=== PATIENT | male | born 1995 | race African-American/Black ===

== ENCOUNTER 2018-08-14 15:03 | Inpatient (IN) | payer BC ==
[~2018-08-14] VITALS: Ht 185.4 cm; Wt 74.4 kg
--- NOTE | 2018-08-14 15:33 | NUR ---
PT BROUGHT IN WITH PARENT BY [facility] FOR SI PT SEEN AT [facility] PT ALERT SPEAKING COARSLY TO PARENT.
[2018-08-14 15:52] LABS: BASOPHILS # (AUTO) 0.1 /CMM (0.0-0.2); BASOPHILS % (AUTO) 0.5 % (0.0-2.0); EOSINOPHILS % (AUTO) 0.1 % (0.0-6.0); HEMATOCRIT 35 % (39-51); HEMOGLOBIN 12.2 g/dL (13.5-17.5); LYMPHOCYTES % (AUTO) 13.5 % (20.0-44.0); MEAN CORPUSCULAR HGB CONC 35 g/dl (31.0-36.0); MEAN CORPUSCULAR VOLUME 94 fL (80-96); MONOCYTES # (AUTO) 1.2 /CMM (0.1-1.30); MONOCYTES % (AUTO) 8.2 % (2.0-12.0); NEUTROPHILS # (AUTO) 11.2 /CMM (1.8-8.9); NEUTROPHILS % (AUTO) 77.7 % (43.0-81.0); PLATELET COUNT (AUTO) 203 /CMM (150-450); RED BLOOD CELL COUNT(AUTO) 3.75 MIL/uL (4.5-6.0); WHITE BLOOD COUNT (AUTO) 14.4 K/uL (4.3-11.0)
[2018-08-14 15:59] LABS: CALCIUM, SERUM 9.2 mg/dL (8.5-10.1); CARBON DIOXIDE 33 mmol/L (21-32); CHLORIDE 103 mmol/L (98-107); CREATININE 1.1 mg/dL (0.6-1.3); GLUCOSE 92 mg/dL (74-106); POTASSIUM 3.6 mmol/L (3.5-5.1); SODIUM SERUM 139 mmol/L (136-145); UREA NITROGEN, BLOOD 17 mg/dL (7-18)
[2018-08-14] MEDS ORDERED: HYDROCODONE/APAP 10/325MG 1 EA TABLET PO ONE (16:00)
[2018-08-14 16:04] LABS: ALANINE AMINOTRANSFERASE 20 U/L (12-78); ALCOHOL, BLOOD < 3 mg/dL (0-0); ALKALINE PHOSPHATASE 66 U/L (46-116); ASPARTATE AMINOTRANSFERASE 55 U/L (15-37); BILIRUBIN,DIRECT 0.1 mg/dL (0.0-0.2); BILIRUBIN,TOTAL 0.7 mg/dL (0.2-1.0); TOTAL PROTEIN, SERUM 7.2 g/dL (6.4-8.2)
[2018-08-14 16:05] LABS: ACETAMINOPHEN < 2 ug/ml (10-30); SALICYLATE < 2.8 mg/dL (2.8-20.0)
[2018-08-14] MEDS ORDERED: HYDROCODONE/APAP 10/325MG 1 EA TABLET ONE (16:22)
--- NOTE | 2018-08-14 17:51 | NUR ---
FAMILY AT BEDSIDE PENDING ADMISSION PT REFUSED PIV MD ROMERO AWARE
--- NOTE | 2018-08-14 20:59 | NUR ---
REPORT GIVEN TO NINI SANDHU FOR RAOUL
[2018-08-14] MEDS ORDERED: MAGNESIUM HYDROXIDE 30 ML UDC PO PRN (21:00)
[2018-08-14] MEDS ORDERED: HYDROCODONE/APAP 5/325MG 1 EACH TABLET PO PRN (21:00)
[2018-08-14] MEDS ORDERED: HYDROCODONE/APAP 10/325MG 1 EA TABLET PO PRN (21:00)
[2018-08-14] MEDS ORDERED: Z GUARD REMEDY 2 OZ OINT TP PRN (21:00)
[2018-08-14] MEDS ORDERED: MAG HYDROX/AL HYDROX/SIMETH 30 ML UDC PO PRN (21:00)
[2018-08-14] MEDS ORDERED: ACETAMINOPHEN 325 MG TABLET PO PRN (21:00)
[2018-08-14] MEDS ORDERED: ONDANSETRON HCL/PF 4 MG/2 ML VIAL IVP PRN (21:00)
--- NOTE | 2018-08-14 22:00 | NUR ---
RECIEVED FROM THE ER ALERT AND TALKING "GLAD TO BE HERE" REFUSED IV FLUIDS AND SALINE LOCK, STATED HE WILL DRINK FLUIDS W/O PROBLEMS. FRIENDS AND FAMILY AT THE BEDSIDE. HOSPITAL PROVIDED SITTER AT THE BEDSIDE D/T SUICIDAL IDEALAZITION. HE IS MENTIONING NOTHING SUCH TO ME AT THIS TIME. WILL NOT PUT ON A HOSPITAL GOWN WANTS TO WEAR HIS JEANS AND T SHIRT. HE IS REFUSING THE IV D/T "I WAS STUCK SO MUCH ALREADY. DID LET HIM KNOW WE EMIGHT HAVE TO IF THE MD ORDERS SOMETHING LIKE MEDS IV.
[2018-08-15 00:30] VITALS: BP 137/79
[2018-08-15 00:55] VITALS: BP 139/79
[2018-08-15] MEDS: IV NS 0.9% 1,000 ML IV PRN ×2 (00:55→06:37)
[2018-08-15 04:00] VITALS: BP 128/71
--- NOTE | 2018-08-15 05:42 | NUR ---
ENDING NOTES: ARRIVED ON THE FLOOR 2300 LAST NIGHT AT THIS TIME HE REFUSED OFFER TO HAVE AN IV INSERTED. WILL OFFER AGAIN LATER. COOPERATIVE ABOUT DRINKING JUICE AND WATER. MOTHER HERE NOW 5:30 AM AND SPOKE TO HER ABOUT THE IV SITUATION SHE SAID SHE WOULD TRY TO TALK TO HIM AND LET ME KNOW. 3 ABD SITES CDI. ON THE TELE MONITOR SR 80 -90S . SLEPT WELL NEVER ASKED FOR PAIN MEDS AFTER LEAVING THE ER.
--- NOTE | 2018-08-15 06:40 | NUR ---
PATIENTS MOM HERE STARTED IV FLUIDS ON HIM RIGHT F*/A GA22
[2018-08-15 07:22] LABS: BASOPHILS % (AUTO) 0.2 % (0.0-2.0); EOSINOPHILS % (AUTO) 1.2 % (0.0-6.0); HEMATOCRIT 37 % (39-51); HEMOGLOBIN 12.7 g/dL (13.5-17.5); LYMPHOCYTES # (AUTO) 2.3 /CMM (0.8-4.8); LYMPHOCYTES % (AUTO) 24.2 % (20.0-44.0); MEAN CORPUSCULAR HGB CONC 35 g/dl (31.0-36.0); MEAN CORPUSCULAR VOLUME 94 fL (80-96); MONOCYTES # (AUTO) 0.7 /CMM (0.1-1.30); MONOCYTES % (AUTO) 7.6 % (2.0-12.0); NEUTROPHILS # (AUTO) 6.4 /CMM (1.8-8.9); NEUTROPHILS % (AUTO) 66.8 % (43.0-81.0); PLATELET COUNT (AUTO) 184 /CMM (150-450); RED BLOOD CELL COUNT(AUTO) 3.91 MIL/uL (4.5-6.0); WHITE BLOOD COUNT (AUTO) 9.5 K/uL (4.3-11.0)
[2018-08-15 07:29] LABS: CALCIUM, SERUM 9.2 mg/dL (8.5-10.1); CREATININE 1.1 mg/dL (0.6-1.3); MAGNESIUM 1.9 mg/dL (1.8-2.4)
[2018-08-15] MEDS: PANTOPRAZOLE 40 MG TABLET.DR PO SCH (07:47)
[2018-08-15 08:00] VITALS: BP 126/80
--- NOTE | 2018-08-15 08:00 | NUR ---
RN NOTES PATIENT RECEIVED IN THE BED A/O X4, QUIET COOPERATIVE, PATIENT HAS A SMALL BLOODY SPUTUM WITH FORCEFUL COUGHING. ENCOURAGED PATIENT DO NOT COUGH HARD, AND FOLLOW DIRECTION. RESPIRATION STABLE, UNLABORED, LUNGS ARE CLEAR DURING AUSCULTATION, BOWELS SOUND ARE ACTIVE IN FOUR QUADRANT OF ABDOMEN. PATIENT REFUSED PAIN AT THIS TIME. PATIENT HAS 3 SMALL SURGICAL OPENING, INTACT. PATIENT REFUSED PAIN AT THIS TIME. NO ACUTE RESPIRATORY DISTRESS, PATIENT USING BATHROOM . IV ACCESS ON RIGHT AC AREA INTACT. CALL LIGHT WITHIN TO REACH,
[2018-08-15 08:31] LABS: THYROID STIMULATING HORMONE 1.704 uIU/mL (0.358-3.74)
--- NOTE | 2018-08-15 08:43 | NUR ---
RN NOTES PER GENERAL FARM MANAGER Dr. ALDRICH D/C TELE TO MED/SURGE, AMBULATE WITH ASSIST, PATIENT STABLE, NO SOB NOTES. PAIN 2/10 REFUSED PAIN MEDICATION, V/S STABLE, MOTHER NEXT TO THE BED, DVT PUMP ON. SAFETY PRECAUTION MAINTAINED ALL THE TIME.
[2018-08-15] MEDS ORDERED: PIPERACILLIN /TAZOBACTAM 3.375 G in IV D5W 50 ML IV SCH (09:30)
[2018-08-15] MEDS: PIPERACILLIN /TAZOBACTAM 3.375 G in IV D5W 100 ML IV SCH ×2 (11:37→18:06)
--- NOTE | 2018-08-15 16:09 | NUR ---
RN NOTES PATIENT ANXIOUS DOING PUSH UPS. EXPLAINED PATIENT AFTER SURGERY SIDE EFFECTS, BUT PATIENT REFUSED TO FOLLOW UP. PATIENT STATE "AFTER COUPLE OF PUSH UPS I AM GOING TO LYE DOWN AND SLEEP". MOM NEXT TO THE BED. CHARGE NURSE NOTIFIED. CONTINUED MONITORING.
--- NOTE | 2018-08-15 18:30 | NUR ---
RN NOTES PATIENT STABLE IN THE BED, GATING ANXIOUS EASILY, FLAT FACE, REFUSED SI/HI AT THIS TIME. INFUSING ZOSYN AT THIS TIME, PATIENT USING BATHROOM. FAMILY NEXT TO THE BED. ENDORSED ONCOMING NURSE FOR PLAN OF CARE.
--- NOTE | 2018-08-15 19:40 | NUR ---
RN MS OPENING NOTES RECEIVED PT IN BED, AWAKE ALERT ORIENTEDX4, MOM AT BEDSIDE, SITTER CLOSE BY. NO VERBALIZATION OF SUICIDAL THOUGHTS AT THE MOMENT. BREATHING EVEN UNLABORED ON ROOM AIR. CON COUGH OR CONGESTION AT THE MOMENT. NO COMPLAINT OF PAIN OR DISCOMFORT AT THIS TIME. IV ACCESS ON THE L FA WITH NS @75ML/HR. BED IN LOWEST LOCKED POSITION, CALL LIGHT WITHIN REACH AT ALL TIMES, WILL CONTINUE TO MONITOR.
[2018-08-16] MEDS ORDERED: LORAZEPAM INJ 2 MG/ML VIAL IV ONE ×3 (01:30→10:30)
[2018-08-16] MEDS: PIPERACILLIN /TAZOBACTAM 3.375 G in IV D5W 100 ML IV SCH ×2 (02:10→10:00)
--- NOTE | 2018-08-16 06:23 | NUR ---
RN MS CLOSING NOTES PT REMAINS IN BED, SLEEPING, EASILY AROUSED TO NAME CALL, MOM AT BEDSIDE, SITTER CLOSE BY. NO VERBALIZATION OF SUICIDAL THOUGHTS AT THE MOMENT. BREATHING EVEN UNLABORED ON ROOM AIR. CON COUGH OR CONGESTION AT THE MOMENT. NO COMPLAINT OF PAIN OR DISCOMFORT AT THIS TIME. IV ACCESS ON THE L FA WITH NS @75ML/HR. BED IN LOWEST LOCKED POSITION, CALL LIGHT WITHIN REACH AT ALL TIMES, WILL ENDORSE TO DAY NURSE FOR RAOUL
[2018-08-16 07:44] LABS: BASOPHILS # (AUTO) 0.1 /CMM (0.0-0.2); BASOPHILS % (AUTO) 0.9 % (0.0-2.0); EOSINOPHILS % (AUTO) 5.5 % (0.0-6.0); HEMATOCRIT 39 % (39-51); HEMOGLOBIN 13.5 g/dL (13.5-17.5); LYMPHOCYTES # (AUTO) 2.1 /CMM (0.8-4.8); LYMPHOCYTES % (AUTO) 25.3 % (20.0-44.0); MEAN CORPUSCULAR HGB CONC 34 g/dl (31.0-36.0); MEAN CORPUSCULAR VOLUME 94 fL (80-96); MONOCYTES # (AUTO) 0.6 /CMM (0.1-1.30); MONOCYTES % (AUTO) 7.7 % (2.0-12.0); NEUTROPHILS % (AUTO) 60.6 % (43.0-81.0); PLATELET COUNT (AUTO) 237 /CMM (150-450); RED BLOOD CELL COUNT(AUTO) 4.19 MIL/uL (4.5-6.0); WHITE BLOOD COUNT (AUTO) 8.3 K/uL (4.3-11.0)
[2018-08-16 08:00] VITALS: BP 136/75
--- NOTE | 2018-08-16 08:00 | NUR ---
RN NOTES RECEIVED PATIENT IN THE ROOM SITTING EDGE OF THE BED. PATIENT STABLE NO ACUTE RESPIRATORY DISTRESS, BUT ANXIOUS, AND HAD MOOD SWINGS, GET IRRITABLE EASILY. PATIENT REFUSED BREAKFAST, REFUSED TO TALK, VERBALLY ABUSIVE. 1:1 SITTER NEXT TO THE BED FOR SAFETY. ALSO MOM IS NEXT TO THE BED ASS WELL. STILL INFUSING ZOSYN ANTIBIOTIC ON RIGHT FA INTACT. SCHEDULED MEDICATION ADMINISTERED. CALL LIGHT WITHIN TO REACH, SAFETY PRECAUTION MAINTAINED ALL THE TIME.
[2018-08-16 08:04] LABS: CALCIUM, SERUM 9.6 mg/dL (8.5-10.1); CREATININE 1.2 mg/dL (0.6-1.3); MAGNESIUM 2.2 mg/dL (1.8-2.4); POTASSIUM 3.3 mmol/L (3.5-5.1)
[2018-08-16] MEDS ORDERED: DOXY100C2 PO (08:35)
[2018-08-16] MEDS ORDERED: LEVO500T75 PO (08:35)
[2018-08-16] MEDS: PANTOPRAZOLE 40 MG TABLET.DR PO SCH (08:57)
[2018-08-16] MEDS ORDERED: POTASSIUM CHLORIDE 20 MEQ TAB.PRT.SR PO SCH (10:30)
--- NOTE | 2018-08-16 11:30 | NUR ---
DISCHARGE NOTES PATIENT DISCHARGE AT THIS TIME GOING HOME. V/S STABLE, NO COMPLAINING OF PAIN, STABLE TO GO HOME. WAS CLEARED BY OVEN DAUBER, AND WIRELESS TELEGRAPHER. MED RECONCILIATION AND DISCHARGE ORDER REVIEWED AND EXPLAINED TO PATIENT, AND MOM. PATIENT VERBALIZED UNDERSTANDING. BELONGING WITH THE PATIENT. PATIENT SIGN PAPERWORK. PRESCRIPTION HANDED TO THE PATIENT. PATIENT WILL TAKE MEDICATION, AND FOLLOW PRIMARY MD. ESCORTED PATIENT TO THE [facility] FOR SAFETY. PATIENT MANAGER SPORTS BY MOM NAME AARON PHONE # [phone].
== END 2018-08-16 11:15 | disposition home or self-care (01) | DRG 947 ==
LOC: ER 15:07 → TELE 19:51 → MED 08-15 08:55
PROVIDERS: ADMIT Registered Nurse; ATTEND Registered Nurse
DX: G89.18 Other acute postprocedural pain (principal); J69.0 Pneumonitis due to inhalation of food and vomit; R45.851 Suicidal ideations; F12.90 Cannabis use, unspecified, uncomplicated; F17.200 Nicotine dependence, unspecified, uncomplicated; F60.3 Borderline personality disorder; F31.9 Bipolar disorder, unspecified; Z87.01 Personal history of pneumonia (recurrent); Z87.09 Personal history of other diseases of the respiratory system; Z91.19 Patient's noncompliance with other medical treatment and regimen; Z91.5 Personal history of self-harm
CPT/HCPCS: 36415; 71045-TC; 80048-TC; 80061-TC; 80076-TC; 83735-TC; 84100-TC; 84443-TC; 85025-TC; 87081-TC; 93307-TC; G0378; G0480; J2060; J2543; J7030; J7060